=== PATIENT | male | born 1955 | race Caucasian/White ===

== ENCOUNTER 2019-11-03 07:39 | Emergency (ER) | payer OTHER ==
[2019-11-03 08:01] VITALS: BP 124/89; TEMP 98; BMI 18.3
[2019-11-03 08:26] VITALS: PULSE 100
[2019-11-03] MEDS ORDERED: LIDOCAINE 5% TOPICAL PATCH TP ONE (08:32)
[2019-11-03] MEDS ORDERED: LIDOCAINE 5% TOPICAL PATCH ONE (08:45)
--- NOTE | 2019-11-03 09:30 | PDOC ---
History of Present Illness - General Chief Complaint: Back Pain Stated Complaint: LEFT LOWER BACK PAIN WITH PAIN RADIATING DOWN LEG Time Seen by Provider: 11/03/19 08:11 - History of Present Illness Initial Comments: 11/03/19 09:22 64-year-old male with a history of prostate cancer status post radiation therapy June 2019, A. fib on Coumadin, HIV (on HAART, undetectable VL) presents to the emergency department with 1 month of left lower back pain radiating down buttucks and around to his groin. Denies preceding trauma but reports frequent heavy lifting at work. Has tried tylenol and a narcotic medication with minimal relief. Pain worse with twisting of his trunk and bending forward. Presented today due to persistence of the pain, no change in quality or severity of the symptoms recently. Denies associated numbness/weakness, urine/stool retention or incontinence, fevers/chills. Pain is not worse at night. He reports having a surveillance CT scan of his pelvis 3 weeks ago - after the pain began - which reportedly did not show any new malignant disease. Denies IVDU. Denies recent weight loss. Otherwise, denies headache, dizziness, cp, sob, N/V/D, abd pain, LE edema. Past History - Medical History Allergies/Adverse Reactions: Allergies Allergy/AdvReac Type Severity Reaction Status Date / Time No Known Allergies Allergy Verified 11/03/19 07:49 Home Medications: Ambulatory Orders Lidocaine 5% Patch [Lidoderm -] 1 patch TP DAILY #7 patch 11/03/19 Metoprolol Succinate [Toprol Xl] 25 mg PO 11/03/19 Warfarin Na [Coumadin] 2.5 mg PO DAILY 11/03/19 Cardiac Disorders: Yes (atrial fibrillation) COPD: No HTN: Yes Other medical history: on coumadin - Psycho-Social/Smoking History Smoking History: Never smoked Have you smoked in the past 12 months: No - Substance Abuse Hx (Audit-C & DAST Scrn) How often the patient has a drink containing alcohol: Never Score: In Men: 4 or > Positive; In Women: 3 or > Positive: 0 Screen Result (Pos requires Nsg. Audit-10AR): Negative In the last yr the pt used illegal drug/Rx for NonMed reason: No Score: Yes response is considered Positive: 0 Screen Result (Positive result requires Nsg. DAST-10): Negative Review of Systems - Review of Systems Comments:: 11/03/19 09:30 GENERAL/CONSTITUTIONAL: No fever or chills. No weakness. HEAD, EYES, EARS, NOSE AND THROAT: No change in vision. No ear pain or discharge. No sore throat. GASTROINTESTINAL: No nausea, vomiting, diarrhea or constipation. GENITOURINARY: No dysuria, frequency, or change in urination. CARDIOVASCULAR: No chest pain or shortness of breath. RESPIRATORY: No cough, wheezing, or hemoptysis. MUSCULOSKELETAL: No joint or muscle swelling or pain. No neck pain. +back pain SKIN: No rash NEUROLOGIC: No headache, vertigo, loss of consciousness, or change in strength/sensation. ENDOCRINE: No increased thirst. No abnormal weight change. HEMATOLOGIC/LYMPHATIC: No anemia, easy bleeding, or history of blood clots. ALLERGIC/IMMUNOLOGIC: No hives or skin allergy. *Physical Exam - Vital Signs Last Vital Signs Temp Pulse Resp BP Pulse Ox 98 F 100 H 16 124/89 96 11/03/19 07:50 11/03/19 08:25 11/03/19 08:25 11/03/19 07:50 11/03/19 08:25 - Physical Exam 11/03/19 09:31 GENERAL: Awake, alert, and fully oriented, thin, in no acute distress. EYES: PERRLA, EOMI, sclera anicteric, conjunctiva clear ENT: Oropharynx clear without exudates. Moist mucosa NECK: Normal ROM, supple, no lymphadenopathy, JVD, or masses LUNGS: Breath sounds equal, clear to auscultation bilaterally. No wheezes, and no crackles HEART: Regular rate and rhythm, normal S1 and S2, no murmurs, rubs or gallops ABDOMEN: Soft, nontender, normoactive bowel sounds. No guarding, no rebound. No masses EXTREMITIES: Normal range of motion, no edema. No clubbing or cyanosis. No cords, erythema, or tenderness BACK: no cervical, thoracic, or lumbar midline ttp. +L lumbar focal paraspinal ttp NEUROLOGICAL: Normal speech, cranial nerves intact, negative pronator drift, 5/5 strength in all 4 extremities, normal sensation to light touch in all 4 extremities, normal cerebellar exam, normal gait, normal reflexes and tone SKIN: Warm, Dry, normal turgor, no rashes or lesions noted. ED Treatment Course - RADIOLOGY Radiology Studies Ordered: Category Date Time Status SPINE-LUMBAR SACRAL [RAD] Stat Radiology 11/03/19 08:22 Taken - Medications Given in the ED: ED Medications Discontinued Medications Generic Name Dose Route Start Last Admin Trade Name Rachael PRN Reason Stop Dose Admin Lidocaine 1 patch 11/03/19 08:32 11/03/19 08:58 Lidoderm Patch - TP 11/03/19 08:33 1 patch ONCE ONE Administration Medical Decision Making - Medical Decision Making 11/03/19 09:00 64yo M hx prostate ca s/p radiation 06/2019, HIV on HAART with undetectable VL, AF on coumadin presents to the ED with 1 month L LBP radiating down buttocks and L anterior groin. Initially tachycardic on arrival but on recheck a few mins later, HR down to 100. Pt states he was nervous when he came in DDx includes sciatica vs lumbar radiculopathy vs malignancy vs disc herniation vs cauda equina vs epidural abscess No cauda equina or epi abscess red flag symptoms, however given hx of recent prostate ca + radiation therapy, metastatic disease is a consideration. Recent surveillance pelvic CT reportedly w/o progression of disease per patient. Will obtain XR as screen for metastatic disease, treat pain, and reassess Pt has tried tylenol and narcotics with poor response. WE can not trial NSAIDs as he is on coumadin We can not trial muscle relaxer in ED as pt drove here Will use lidocaine patch, and send script for valium PO to pharmacy so long as XR is not concerning Will reassess 11/03/19 10:49 Pain is improved with lido patch XR completed but read pending Pt would like to be DC Will refer to orthopedist for possible MRI Pt well appearing and clinically stable for DC home I discussed the physical exam findings, ancillary test results and final diagnoses with the patient. I answered all of the patient's questions. The patient was satisfied with the care received and felt comfortable with the discharge plan and treatment plan. The patient will call their primary care physician within 24 hours to arrange follow-up and will return to the Emergency Department with any new, persistent or worsening symptoms. 11/03/19 11:02 XR read, no destructive bony lesions Discussed results with pt as well as need for MRI on outpt basis for further evaluation Pt expresses understanding and will f/u with ortho Lido patch script sent as it worked well for pt He is clinically stable for DC home Discharge - Discharge Information Problems reviewed: Yes Clinical Impression/Diagnosis: Back pain, Muscle spasm Condition: Stable Disposition: HOME - Admission No - Additional Discharge Information Prescriptions: Lidocaine 5% Patch [Lidoderm -] 1 patch TP DAILY #7 patch - Follow up/Referral Referrals: Kwaku Stevens MD [Staff Physician] - - Patient Discharge Instructions Patient Printed Discharge Instructions: DI for Low Back Pain Additional Instructions: You may use lidocaine patches for pain control as needed. Please read the ins tructions on the package label. Your x-ray appeared normal on my read, however the final read by the radiologist is pending. I will call you if there are any concerning abnormalities on the final read. Please call Dr. Stevens's office for a follow up appointment with the smoke and flame specialist. You likely need an MRI for further evaluation of your back pain. Please return to the emergency department if you have any new, worsening, or concerning symptoms - Post Discharge Activity
== END 2019-11-03 11:05 | disposition home or self-care (01) ==
LOC: FER 07:39
DX: M62.830 Muscle spasm of back (principal)
CPT/HCPCS: 72100-TC-FY; 99283-25